=== PATIENT | male | born 1960 | race African-American/Black ===

== ENCOUNTER 2019-02-23 20:33 | Emergency (ER) | payer SELFPAY ==
[~2019-02-23] VITALS: Ht 177.8 cm; Wt 75.0 kg
[2019-02-23] MEDS ORDERED: SODIUM CHLORIDE 0.9% 1,000 ML IV ONE (20:56)
[2019-02-23 21:25] LABS: BASOPHILS % 1.2 % (0.0-2.0); CHLORIDE 106 mEq/L (98-107); EOSINOPHILS % 2.5 % (0.0-5.0); HEMATOCRIT. 41.8 % (42.0-52.0); LYMPHOCYTES % 40.5 % (20.0-50.0); MEAN CORPUSCULAR HEMOGLOBIN 33.1 pg (28.0-32.0); MEAN CORPUSCULAR VOLUME 99.1 fL (80.0-94.0); MEAN PLATELET VOLUME 8.3 fl (7.4-10.4); MONOCYTES % 5.7 % (2.0-8.0); NEUTROPHILS % 50.1 % (40.0-76.0); PLATELET 161 x1000/uL (130-400); RED BLOOD CELL COUNT 4.22 mill/uL (4.7-6.1); RED CELL DISTRIBUTION WIDTH 14.3 % (11.6-14.6)
[2019-02-23 21:29] LABS: ETHANOL BLOOD < 10 mg/dL
[2019-02-23] MEDS ORDERED: POTASSIUM CHLORIDE 20MEQ TABLET SR PO ONE (21:45)
[2019-02-23 22:43] LABS: CLARITY URINE CLOUDY (CLEAR); COLOR URINE DARK YELLOW (YELLOW); KETONES URINE TRACE (NEGATIVE); LEUKOCYTE ESTERASE URINE TRACE (NEGATIVE); NITRITE URINE NEGATIVE (NEGATIVE); OCCULT BLOOD URINE NEGATIVE (NEGATIVE); PH URINE 5.5 (4.5-8.0); PROTEIN URINE TRACE (NEGATIVE); SPECIFIC GRAVITY URINE 1.019 (1.005-1.030)
[2019-02-23 22:52] LABS: *AMPHETAMINES SCREEN URINE NEGATIVE (NEGATIVE); *BARBITURATES SCREEN URINE NEGATIVE (NEGATIVE); *BENZODIAZEPINES SCREEN URINE NEGATIVE (NEGATIVE)
[2019-02-23 22:53] LABS: *COCAINE SCREEN URINE NEGATIVE (NEGATIVE); CANNABINOID URINE SCREEN PRESUMTIVE POSITIVE (NEGATIVE); METHADONE URINE SCREEN NEGATIVE (NEGATIVE); OPIATES URINE SCREEN NEGATIVE (NEGATIVE); PHENCYCLIDINE URINE SCREEN NEGATIVE (NEGATIVE)
[2019-02-23 23:52] VITALS: BP 107/56
== END 2019-02-24 00:03 | disposition home or self-care (01) ==
LOC: ER 20:33
DX: T50.901A Poisoning by unspecified drugs, medicaments and biological substances, accidental (unintentional), initial encounter (principal); X58.XXXA Exposure to other specified factors, initial encounter; E86.0 Dehydration; R55 Syncope and collapse; E87.6 Hypokalemia; F12.10 Cannabis abuse, uncomplicated; I11.0 Hypertensive heart disease with heart failure; I50.9 Heart failure, unspecified; E78.00 Pure hypercholesterolemia, unspecified
CPT/HCPCS: 36415; 80053; 80305; 80307; 80320; 80329; 81003; 85025; 93005; 96360; 96361; 99284; J7030; Z7610; G0480